=== PATIENT | male | born 1970 | race Caucasian/White ===

== ENCOUNTER 2023-03-05 10:24 | Inpatient (IN) | payer MEDICAID ==
[~2023-03-05] VITALS: Ht 185.4 cm; Wt 75.7 kg
[2023-03-05] MEDS ORDERED: ondansetron/PF 4mg/2ml inj IV ONE (12:20)
[2023-03-05] MEDS ORDERED: normal saline 1000ml 1,000 ML IV ONE (12:20)
[2023-03-05] MEDS ORDERED: HYDROmorphone 1 mg/ml syringe IV ONE (12:25)
[2023-03-05] MEDS ORDERED: vancomycin/NS 1 GM ADD-VANTAGE 250 ML IV ONE (12:35)
[2023-03-05 13:25] LABS: BASOPHILS % (AUTO) 0.3 % (0-1); EOSINOPHILS # (AUTO) 0.1 X10'3 (0-0.9); EOSINOPHILS % (AUTO) 0.7 % (0-6); HEMATOCRIT 35.7 % (42.0-52.0); HEMOGLOBIN 11.9 g/dl (14.0-17.9); LYMPHOCYTES # (AUTO) 0.9 X10'3 (1.1-4.8); LYMPHOCYTES % (AUTO) 12.2 % (21-51); MEAN CORPUSCULAR HEMOGLOBIN 29.9 PG (27.0-31.0); MEAN CORPUSCULAR HGB CONC 33.3 g/dL (33.0-36.5); MEAN CORPUSCULAR VOLUME 89.8 FL (78-98); MEAN PLATELET VOLUME 6.6 FL (7.4-10.4); MONOCYTES # (AUTO) 0.7 X10'3 (0-0.9); MONOCYTES % (AUTO) 8.8 % (2-12); PLATELET COUNT 355 X10'3 (140-440); RED BLOOD COUNT 3.98 X10'6 (4.70-6.10); RED CELL DISTRIBUTION WIDTH 13.6 % (11.5-14.5); WHITE BLOOD COUNT 7.7 X10'3 (4.5-11.0)
[2023-03-05 13:43] LABS: ALANINE AMINOTRANSFERASE 10 U/L (12-78); ALBUMIN 2.2 G/DL (3.4-5.0); ALBUMIN/GLOBULIN RATIO 0.5 (1.1-1.5); ALKALINE PHOSPHATASE 115 IU/L (46-116); ANION GAP 6 (8-16); ASPARTATE AMINO TRANSFERASE 13 U/L (10-37); BILIRUBIN,TOTAL 0.4 MG/DL (0.1-1.0); BLOOD UREA NITROGEN 8 MG/DL (7-18); BUN/CREATININE RATIO 11.1 (10.0-20.0); C-REACTIVE PROTEIN 8.71 MG/DL (0.0-0.5); CALCIUM 8.1 MG/DL (8.5-10.1); CHLORIDE 98 MMOL/L (99-107); CREATININE 0.72 MG/DL (0.60-1.10); GLUCOSE 225 MG/DL (70-104); MAGNESIUM 1.8 MG/DL (1.5-2.4); POTASSIUM 4.1 MMOL/L (3.5-5.1); SODIUM 131 MMOL/L (135-145); TOTAL CARBON DIOXIDE 27.3 MMOL/L (24-32); TOTAL PROTEIN 6.5 G/DL (6.4-8.2); eCRCL 122 ML/MIN; eGFR > 90 ML/MIN
[2023-03-05] MEDS: normal saline 1000ml 1,000 ML IV SCH (16:35)
[2023-03-05] MEDS ORDERED: magnesium hydroxide 30ml (MOM) UD suspension PO PRN (16:35)
[2023-03-05] MEDS ORDERED: ondansetron/PF 4mg/2ml inj IV PRN (16:35)
[2023-03-05] MEDS ORDERED: acetaminophen 325mg tablet PO PRN (16:35)
[2023-03-05] MEDS ORDERED: mag hydrox/Alum hydrox/simeth 30ml oral suspension PO PRN (16:35)
[2023-03-05] MEDS ORDERED: magnesium Cl slow-release 64mg tablet PO PRN (16:35)
[2023-03-05] MEDS ORDERED: potassium Cl 20 mEq SR tablet PO PRN ×2 (16:35)
[2023-03-05] MEDS ORDERED: magnesium 4gm in 100ml NS 100 ML IV PRN (16:35)
[2023-03-05] MEDS ORDERED: potassium Cl 40MEQ/1/2NS 520ml 520 ML IV PRN (16:35)
[2023-03-05] MEDS: cefepime 2g/NS 100ml ADVANTAGE 100 ML IV SCH (16:38)
[2023-03-05] MEDS: morphine 2 MG/ML inj. syringe IV PRN (16:50)
[2023-03-05] MEDS ORDERED: GADOTERATE MEGLUMINE 7.5 MMOL/15 ML VIAL IV ONE (19:21)
[2023-03-05] MEDS ORDERED: morphine 2 MG/ML inj. syringe IV STA (19:47)
[2023-03-05] MEDS ORDERED: DEXTROSE 15 GM of carb/4 tabs (each vial/BOTTLE has 4 tablets) PO PRN (20:05)
[2023-03-05] MEDS ORDERED: dextrose 50%-water 50ml dispensing syringe IV PRN ×2 (20:05)
[2023-03-05] MEDS ORDERED: glucagon, human recombinant 1mg kit SUBCUT PRN (20:05)
[2023-03-05] MEDS: clindamycin 600mg/D5W 50ml 50 ML IV SCH (20:25)
[2023-03-05] MEDS: insulin glargine (Lantus) pen - multi-dose SQ SCH (20:35)
[2023-03-06] MEDS: morphine 2 MG/ML inj. syringe IV PRN ×5 (00:46→14:23)
[2023-03-06] MEDS: cefepime 2g/NS 100ml ADVANTAGE 100 ML IV SCH ×2 (00:47→08:01)
[2023-03-06] MEDS: VANCOmycin 1250MG/NS 250ml Bag 250 ML IV SCH ×2 (01:28→13:34)
[2023-03-06] MEDS: normal saline 1000ml 1,000 ML IV SCH ×3 (02:37→20:13)
[2023-03-06] MEDS: clindamycin 600mg/D5W 50ml 50 ML IV SCH ×4 (03:04→20:08)
[2023-03-06 07:30] VITALS: RESP 20; O2SAT 97
[2023-03-06 08:00] VITALS: BP 149/94; PULSE 83; RESP 20; TEMP 98.1; O2SAT 95
[2023-03-06] MEDS: enoxaparin 40mg/0.4ml syringe SUBCUT SCH (08:00)
[2023-03-06] MEDS ORDERED: lisinopril 5mg tablet PO SCH (08:00)
[2023-03-06 09:33] LABS: BASOPHILS # (AUTO) 0.1 X10'3 (0-0.2); BASOPHILS % (AUTO) 0.8 % (0-1); EOSINOPHILS # (AUTO) 0.1 X10'3 (0-0.9); HEMATOCRIT 32.1 % (42.0-52.0); HEMOGLOBIN 10.8 g/dl (14.0-17.9); LYMPHOCYTES # (AUTO) 0.9 X10'3 (1.1-4.8); LYMPHOCYTES % (AUTO) 11.8 % (21-51); MEAN CORPUSCULAR HEMOGLOBIN 30.4 PG (27.0-31.0); MEAN CORPUSCULAR HGB CONC 33.8 g/dL (33.0-36.5); MEAN CORPUSCULAR VOLUME 89.9 FL (78-98); MEAN PLATELET VOLUME 6.3 FL (7.4-10.4); MONOCYTES # (AUTO) 0.6 X10'3 (0-0.9); MONOCYTES % (AUTO) 8.8 % (2-12); NEUTROPHILS # (AUTO) 5.6 X10'3 (1.8-7.7); NEUTROPHILS % (AUTO) 77.6 % (42-75); PLATELET COUNT 348 X10'3 (140-440); RED BLOOD COUNT 3.57 X10'6 (4.70-6.10); RED CELL DISTRIBUTION WIDTH 13.9 % (11.5-14.5); WHITE BLOOD COUNT 7.3 X10'3 (4.5-11.0)
[2023-03-06 09:57] LABS: ALANINE AMINOTRANSFERASE 8 U/L (12-78); ALBUMIN 1.8 G/DL (3.4-5.0); ALBUMIN/GLOBULIN RATIO 0.5 (1.1-1.5); ALKALINE PHOSPHATASE 96 IU/L (46-116); ANION GAP 4 (8-16); ASPARTATE AMINO TRANSFERASE 11 U/L (10-37); BILIRUBIN,TOTAL 0.3 MG/DL (0.1-1.0); BLOOD UREA NITROGEN 6 MG/DL (7-18); BUN/CREATININE RATIO 9.7 (10.0-20.0); CHLORIDE 99 MMOL/L (99-107); CHOL/HDL RATIO 2.4 (0.00-4.99); CHOLESTEROL 126 MG/DL (0-200); CREATININE 0.62 MG/DL (0.60-1.10); GLUCOSE 117 MG/DL (70-104); HDL CHOLESTEROL 53 MG/DL (35-60); LDL CHOLESTEROL 55 MG/DL (50-100); POTASSIUM 3.7 MMOL/L (3.5-5.1); SODIUM 130 MMOL/L (135-145); TOTAL CARBON DIOXIDE 27.2 MMOL/L (24-32); TOTAL PROTEIN 5.6 G/DL (6.4-8.2); TRIGLYCERIDES 58 MG/DL (20-135); eCRCL 142 ML/MIN; eGFR > 90 ML/MIN
[2023-03-06] MEDS: HYDROcodone/acetaminophen 10/325mg tab PO PRN ×3 (10:49→20:16)
[2023-03-06 12:36] VITALS: BP 167/103; PULSE 82; RESP 17; TEMP 98.2; O2SAT 98
[2023-03-06] MEDS: piperacillin/tazo 4.5gm/100ml 100 ML IV SCH ×2 (13:34→16:00)
[2023-03-06] MEDS: lisinopril 20mg tablet PO SCH (15:12)
[2023-03-06 18:00] VITALS: BP 165/101; PULSE 91; RESP 14; TEMP 98.2; O2SAT 95
[2023-03-06] MEDS ORDERED: LISI20TA28 PO (18:42)
[2023-03-06] MEDS ORDERED: GABA300C PO ×3 (18:42)
[2023-03-06 20:00] VITALS: RESP 20; O2SAT 97
[2023-03-06] MEDS: insulin Lispro (HumaLOG) vial - multi-dose SQ SCH (21:11)
[2023-03-06] MEDS: insulin glargine (Lantus) pen - multi-dose SQ SCH (21:22)
[2023-03-06 22:00] VITALS: BP 149/94; PULSE 89; RESP 16; TEMP 98.2; O2SAT 96
[2023-03-07] VITALS (7 sets, daily range): BP systolic 137–158; BP diastolic 83–96; PULSE 83–87; RESP 12–18; TEMP 97.2–98.7; O2SAT 95–99
[2023-03-07] MEDS: piperacillin/tazo 4.5gm/100ml 100 ML IV SCH ×3 (00:20→15:59)
[2023-03-07] MEDS: HYDROcodone/acetaminophen 10/325mg tab PO PRN ×3 (00:52→19:25)
[2023-03-07] MEDS: VANCOmycin 1250MG/NS 250ml Bag 250 ML IV SCH ×2 (01:13→13:16)
[2023-03-07] MEDS: clindamycin 600mg/D5W 50ml 50 ML IV SCH ×4 (03:16→19:31)
[2023-03-07] MEDS: normal saline 1000ml 1,000 ML IV SCH ×2 (05:30→17:06)
[2023-03-07 06:34] LABS: BASOPHILS # (AUTO) 0.1 X10'3 (0-0.2); EOSINOPHILS # (AUTO) 0.1 X10'3 (0-0.9); EOSINOPHILS % (AUTO) 1.5 % (0-6); HEMATOCRIT 32.6 % (42.0-52.0); HEMOGLOBIN 11.2 g/dl (14.0-17.9); LYMPHOCYTES # (AUTO) 0.9 X10'3 (1.1-4.8); LYMPHOCYTES % (AUTO) 12.7 % (21-51); MEAN CORPUSCULAR HEMOGLOBIN 30.5 PG (27.0-31.0); MEAN CORPUSCULAR HGB CONC 34.4 g/dL (33.0-36.5); MEAN CORPUSCULAR VOLUME 88.5 FL (78-98); MEAN PLATELET VOLUME 6.2 FL (7.4-10.4); MONOCYTES # (AUTO) 0.6 X10'3 (0-0.9); MONOCYTES % (AUTO) 9.2 % (2-12); NEUTROPHILS # (AUTO) 5.2 X10'3 (1.8-7.7); NEUTROPHILS % (AUTO) 75.6 % (42-75); PLATELET COUNT 402 X10'3 (140-440); RED BLOOD COUNT 3.69 X10'6 (4.70-6.10); RED CELL DISTRIBUTION WIDTH 13.6 % (11.5-14.5); WHITE BLOOD COUNT 6.9 X10'3 (4.5-11.0)
[2023-03-07 06:50] LABS: ALANINE AMINOTRANSFERASE 9 U/L (12-78); ALBUMIN 1.8 G/DL (3.4-5.0); ALBUMIN/GLOBULIN RATIO 0.5 (1.1-1.5); ALKALINE PHOSPHATASE 105 IU/L (46-116); ANION GAP 4 (8-16); ASPARTATE AMINO TRANSFERASE 13 U/L (10-37); BILIRUBIN,TOTAL 0.2 MG/DL (0.1-1.0); BLOOD UREA NITROGEN 15 MG/DL (7-18); BUN/CREATININE RATIO 18.8 (10.0-20.0); CALCIUM 8.2 MG/DL (8.5-10.1); CHLORIDE 97 MMOL/L (99-107); GLUCOSE 129 MG/DL (70-104); POTASSIUM 4.1 MMOL/L (3.5-5.1); SODIUM 130 MMOL/L (135-145); TOTAL CARBON DIOXIDE 28.7 MMOL/L (24-32); TOTAL PROTEIN 5.8 G/DL (6.4-8.2); eCRCL 110 ML/MIN; eGFR > 90 ML/MIN
[2023-03-07] MEDS: lisinopril 20mg tablet PO SCH ×4 (07:37→19:25)
[2023-03-07] MEDS: enoxaparin 40mg/0.4ml syringe SUBCUT SCH (07:38)
[2023-03-07] MEDS: morphine 2 MG/ML inj. syringe IV PRN ×3 (07:42→15:59)
[2023-03-07] MEDS: insulin Lispro (HumaLOG) vial - multi-dose SQ SCH ×2 (08:48→13:22)
[2023-03-07] MEDS ORDERED: VANCOMYCIN LEVEL IV ONE (12:30)
[2023-03-07] MEDS: insulin glargine (Lantus) pen - multi-dose SQ SCH (21:50)
[2023-03-08] MEDS: piperacillin/tazo 4.5gm/100ml 100 ML IV SCH ×3 (00:23→16:40)
[2023-03-08] MEDS: vancomycin 1,750 MG in NS 350ml IV soln IV SCH ×2 (01:40→12:49)
[2023-03-08] MEDS: clindamycin 600mg/D5W 50ml 50 ML IV SCH ×4 (03:09→20:02)
[2023-03-08] MEDS: HYDROcodone/acetaminophen 10/325mg tab PO PRN ×4 (03:18→17:04)
[2023-03-08 06:00] VITALS: BP 142/65; PULSE 72; RESP 16; TEMP 97; O2SAT 93
[2023-03-08 06:17] LABS: BASOPHILS # (AUTO) 0.1 X10'3 (0-0.2); EOSINOPHILS # (AUTO) 0.1 X10'3 (0-0.9); EOSINOPHILS % (AUTO) 1.9 % (0-6); HEMATOCRIT 34.7 % (42.0-52.0); HEMOGLOBIN 11.5 g/dl (14.0-17.9); LYMPHOCYTES % (AUTO) 12.8 % (21-51); MEAN CORPUSCULAR HEMOGLOBIN 29.7 PG (27.0-31.0); MEAN CORPUSCULAR HGB CONC 33.3 g/dL (33.0-36.5); MEAN CORPUSCULAR VOLUME 89.2 FL (78-98); MEAN PLATELET VOLUME 6.4 FL (7.4-10.4); MONOCYTES # (AUTO) 0.7 X10'3 (0-0.9); MONOCYTES % (AUTO) 9.2 % (2-12); NEUTROPHILS % (AUTO) 75.1 % (42-75); PLATELET COUNT 440 X10'3 (140-440); RED BLOOD COUNT 3.89 X10'6 (4.70-6.10); RED CELL DISTRIBUTION WIDTH 13.5 % (11.5-14.5)
[2023-03-08 06:20] LABS: ALANINE AMINOTRANSFERASE 8 U/L (12-78); ALBUMIN 1.8 G/DL (3.4-5.0); ALBUMIN/GLOBULIN RATIO 0.4 (1.1-1.5); ALKALINE PHOSPHATASE 102 IU/L (46-116); ANION GAP 5 (8-16); ASPARTATE AMINO TRANSFERASE 12 U/L (10-37); BILIRUBIN,TOTAL 0.2 MG/DL (0.1-1.0); BLOOD UREA NITROGEN 19 MG/DL (7-18); BUN/CREATININE RATIO 21.8 (10.0-20.0); CALCIUM 8.2 MG/DL (8.5-10.1); CHLORIDE 95 MMOL/L (99-107); CREATININE 0.87 MG/DL (0.60-1.10); GLUCOSE 244 MG/DL (70-104); POTASSIUM 4.3 MMOL/L (3.5-5.1); SODIUM 129 MMOL/L (135-145); TOTAL CARBON DIOXIDE 29.4 MMOL/L (24-32); TOTAL PROTEIN 6.1 G/DL (6.4-8.2); eCRCL 111 ML/MIN; eGFR > 90 ML/MIN
[2023-03-08] MEDS: lisinopril 20mg tablet PO SCH ×2 (07:58→20:03)
[2023-03-08] MEDS: enoxaparin 40mg/0.4ml syringe SUBCUT SCH (07:58)
[2023-03-08] MEDS: insulin Lispro (HumaLOG) vial - multi-dose SQ SCH ×2 (09:01→13:04)
[2023-03-08 10:00] VITALS: BP 115/69; PULSE 78; RESP 18; TEMP 98.4; O2SAT 97
[2023-03-08] MEDS: insulin glargine (Lantus) pen - multi-dose SQ SCH (14:45)
[2023-03-08] MEDS: morphine 2 MG/ML inj. syringe IV PRN (15:06)
[2023-03-08] MEDS: normal saline 1000ml 1,000 ML IV SCH (16:41)
[2023-03-08 18:00] VITALS: BP 133/75; PULSE 83; RESP 16; TEMP 98.9; O2SAT 94
[2023-03-08] MEDS ORDERED: insulin glargine (Lantus) pen - multi-dose SQ ONE (18:00)
[2023-03-08 20:00] VITALS: RESP 18
[2023-03-08 22:00] VITALS: BP 159/98; PULSE 92; RESP 16; TEMP 98; O2SAT 97
[2023-03-09] VITALS (18 sets, daily range): BP systolic 103–172; BP diastolic 53–101; PULSE 63–88; RESP 10–17; TEMP 97.4–98.5; O2SAT 93–100
[2023-03-09] MEDS: piperacillin/tazo 4.5gm/100ml 100 ML IV SCH ×4 (00:35→18:37)
[2023-03-09] MEDS: HYDROcodone/acetaminophen 10/325mg tab PO PRN ×3 (00:39→17:32)
[2023-03-09] MEDS: vancomycin 1,750 MG in NS 350ml IV soln IV SCH ×2 (00:40→16:04)
[2023-03-09] MEDS: clindamycin 600mg/D5W 50ml 50 ML IV SCH ×4 (03:15→20:45)
[2023-03-09 06:07] LABS: BASOPHILS # (AUTO) 0.1 X10'3 (0-0.2); EOSINOPHILS # (AUTO) 0.1 X10'3 (0-0.9); EOSINOPHILS % (AUTO) 1.6 % (0-6); HEMATOCRIT 33.9 % (42.0-52.0); HEMOGLOBIN 11.6 g/dl (14.0-17.9); LYMPHOCYTES # (AUTO) 1.1 X10'3 (1.1-4.8); LYMPHOCYTES % (AUTO) 13.5 % (21-51); MEAN CORPUSCULAR HEMOGLOBIN 30.3 PG (27.0-31.0); MEAN CORPUSCULAR HGB CONC 34.1 g/dL (33.0-36.5); MEAN CORPUSCULAR VOLUME 88.8 FL (78-98); MEAN PLATELET VOLUME 6.4 FL (7.4-10.4); MONOCYTES # (AUTO) 0.7 X10'3 (0-0.9); MONOCYTES % (AUTO) 8.4 % (2-12); NEUTROPHILS # (AUTO) 6.2 X10'3 (1.8-7.7); NEUTROPHILS % (AUTO) 75.5 % (42-75); PLATELET COUNT 482 X10'3 (140-440); RED BLOOD COUNT 3.82 X10'6 (4.70-6.10); RED CELL DISTRIBUTION WIDTH 13.5 % (11.5-14.5); WHITE BLOOD COUNT 8.2 X10'3 (4.5-11.0)
[2023-03-09 06:12] LABS: ALBUMIN 1.8 G/DL (3.4-5.0); ALBUMIN/GLOBULIN RATIO 0.4 (1.1-1.5); ALKALINE PHOSPHATASE 95 IU/L (46-116); ANION GAP 4 (8-16); ASPARTATE AMINO TRANSFERASE 12 U/L (10-37); BILIRUBIN,TOTAL 0.3 MG/DL (0.1-1.0); BLOOD UREA NITROGEN 20 MG/DL (7-18); CALCIUM 8.4 MG/DL (8.5-10.1); CHLORIDE 96 MMOL/L (99-107); GLUCOSE 204 MG/DL (70-104); POTASSIUM 4.3 MMOL/L (3.5-5.1); SODIUM 129 MMOL/L (135-145); TOTAL CARBON DIOXIDE 29.2 MMOL/L (24-32); TOTAL PROTEIN 6.4 G/DL (6.4-8.2); eCRCL 121 ML/MIN; eGFR > 90 ML/MIN
[2023-03-09 06:57] LABS: ALANINE AMINOTRANSFERASE < 6 U/L (12-78)
[2023-03-09 07:15] LABS: APTT 31 SECONDS (22-32); PROTHROMBIN TIME 10.5 SECONDS (9.0-12.0)
[2023-03-09] MEDS: atorvastatin 20mg tablet PO SCH (07:26)
[2023-03-09] MEDS: folic acid/vitamin B complex w/vitamin C 0.8mg tablet PO SCH (07:27)
[2023-03-09] MEDS: multivitamins, therapeutics tablet PO SCH (07:28)
[2023-03-09] MEDS: lisinopril 20mg tablet PO SCH ×2 (07:28→17:59)
[2023-03-09] MEDS: morphine 2 MG/ML inj. syringe IV PRN ×3 (07:41→20:50)
[2023-03-09] MEDS: enoxaparin 40mg/0.4ml syringe SUBCUT SCH (08:00)
[2023-03-09] MEDS: insulin glargine (Lantus) pen - multi-dose SQ SCH (08:00)
[2023-03-09] MEDS: insulin Lispro (HumaLOG) vial - multi-dose SQ SCH ×3 (08:32→20:42)
[2023-03-09] MEDS ORDERED: labetalol 20mg/4ml (5mg/ml) syringe IV PRN (11:25)
[2023-03-09] MEDS ORDERED: morphine 2 MG/ML inj. syringe IV PRN (11:25)
[2023-03-09] MEDS ORDERED: ringers solution, lacted 1,000 ML IV SCH (11:25)
[2023-03-09] MEDS ORDERED: morphine 4 MG/ML inj SYRINge IV PRN (11:25)
[2023-03-09] MEDS ORDERED: ringers solution, lacted 1,000 ML IV ONE (11:25)
[2023-03-09] MEDS ORDERED: fentaNYL/PF 50MCG/1 ML 2ML syringe IV PRN ×2 (11:25)
[2023-03-09] MEDS ORDERED: ondansetron/PF 4mg/2ml inj IV PRN (11:25)
[2023-03-09] MEDS ORDERED: hydrALAZINE 20mg/ml inj. IV PRN (11:25)
[2023-03-09] MEDS ORDERED: VANCOMYCIN LEVEL IV ONE (12:30)
[2023-03-09] MEDS ORDERED: BUPIVAcaine 2.5mg/ml inj 50ml vial (contains preservative) ONE (12:39)
[2023-03-09] MEDS ORDERED: fentaNYL/PF 50MCG/1 ML 2ML syringe ONE (13:20)
[2023-03-09] MEDS ORDERED: midazolam 1 mg/ML 2ml injection ONE (13:20)
[2023-03-09] MEDS ORDERED: ondansetron/PF 4mg/2ml inj ONE (13:21)
[2023-03-09] MEDS ORDERED: propofol inj 20 ML IV ONE (13:21)
[2023-03-09] MEDS ORDERED: LIDOcaine 2% (20mg/ml) 5ml vial ONE (13:21)
[2023-03-09] MEDS ORDERED: dexamethasone sod phosphate 10mg/ml inj ONE (13:24)
[2023-03-09] MEDS ORDERED: sevoflurane 250ml liquid IH ONE (13:24)
[2023-03-09] MEDS ORDERED: vancomycin 1,000mg inj ONE (13:59)
[2023-03-09] MEDS ORDERED: vancomycin 1,000mg inj IVT ONE (14:00)
[2023-03-09] MEDS ORDERED: BUPIVAcaine 2.5mg/ml inj 50ml vial (contains preservative) IJ ONE (14:00)
[2023-03-10] MEDS: piperacillin/tazo 4.5gm/100ml 100 ML IV SCH ×4 (00:41→23:37)
[2023-03-10] MEDS: vancomycin 1,750 MG in NS 350ml IV soln IV SCH ×2 (00:41→14:11)
[2023-03-10] MEDS: normal saline 1000ml 1,000 ML IV SCH ×2 (00:42→18:58)
[2023-03-10] MEDS: HYDROcodone/acetaminophen 10/325mg tab PO PRN ×5 (00:49→18:57)
[2023-03-10 02:00] VITALS: BP 172/92; PULSE 83; RESP 16; TEMP 98; O2SAT 93
[2023-03-10] MEDS: clindamycin 600mg/D5W 50ml 50 ML IV SCH (02:29)
[2023-03-10] MEDS ORDERED: famotidine 20mg tablet PO ONE (06:00)
[2023-03-10 06:10] LABS: BASOPHILS # (AUTO) 0.1 X10'3 (0-0.2); BASOPHILS % (AUTO) 0.8 % (0-1); EOSINOPHILS # (AUTO) 0.1 X10'3 (0-0.9); EOSINOPHILS % (AUTO) 0.8 % (0-6); HEMATOCRIT 35.5 % (42.0-52.0); HEMOGLOBIN 11.8 g/dl (14.0-17.9); LYMPHOCYTES # (AUTO) 0.8 X10'3 (1.1-4.8); LYMPHOCYTES % (AUTO) 8.2 % (21-51); MEAN CORPUSCULAR HEMOGLOBIN 29.6 PG (27.0-31.0); MEAN CORPUSCULAR HGB CONC 33.2 g/dL (33.0-36.5); MEAN CORPUSCULAR VOLUME 89.1 FL (78-98); MEAN PLATELET VOLUME 6.3 FL (7.4-10.4); MONOCYTES # (AUTO) 0.7 X10'3 (0-0.9); MONOCYTES % (AUTO) 7.2 % (2-12); NEUTROPHILS # (AUTO) 7.8 X10'3 (1.8-7.7); PLATELET COUNT 498 X10'3 (140-440); RED BLOOD COUNT 3.99 X10'6 (4.70-6.10); RED CELL DISTRIBUTION WIDTH 13.4 % (11.5-14.5); WHITE BLOOD COUNT 9.4 X10'3 (4.5-11.0)
[2023-03-10 06:51] LABS: ALANINE AMINOTRANSFERASE 8 U/L (12-78); ALBUMIN 1.8 G/DL (3.4-5.0); ALBUMIN/GLOBULIN RATIO 0.4 (1.1-1.5); ALKALINE PHOSPHATASE 99 IU/L (46-116); ANION GAP 6 (8-16); ASPARTATE AMINO TRANSFERASE 15 U/L (10-37); BILIRUBIN,TOTAL 0.3 MG/DL (0.1-1.0); BLOOD UREA NITROGEN 18 MG/DL (7-18); BUN/CREATININE RATIO 18.9 (10.0-20.0); CALCIUM 8.1 MG/DL (8.5-10.1); CHLORIDE 96 MMOL/L (99-107); CREATININE 0.95 MG/DL (0.60-1.10); GLUCOSE 345 MG/DL (70-104); POTASSIUM 4.5 MMOL/L (3.5-5.1); SODIUM 129 MMOL/L (135-145); TOTAL CARBON DIOXIDE 27.1 MMOL/L (24-32); eCRCL 102 ML/MIN; eGFR 83 ML/MIN
[2023-03-10] MEDS: folic acid/vitamin B complex w/vitamin C 0.8mg tablet PO SCH (08:47)
[2023-03-10] MEDS: multivitamins, therapeutics tablet PO SCH (08:47)
[2023-03-10] MEDS: atorvastatin 20mg tablet PO SCH (08:47)
[2023-03-10] MEDS: enoxaparin 40mg/0.4ml syringe SUBCUT SCH (08:48)
[2023-03-10 09:00] VITALS: BP 163/99; PULSE 79; RESP 18; TEMP 97.8; O2SAT 96
[2023-03-10] MEDS: lisinopril 20mg tablet PO SCH ×2 (09:37→19:01)
[2023-03-10 11:00] VITALS: BP 159/81; PULSE 83; RESP 18; TEMP 98.7; O2SAT 95
[2023-03-10] MEDS: insulin glargine (Lantus) pen - multi-dose SQ SCH (11:12)
[2023-03-10] MEDS: morphine 2 MG/ML inj. syringe IV PRN (11:17)
[2023-03-10] MEDS ORDERED: insulin glargine (Lantus) pen - multi-dose SQ SCH (11:20)
[2023-03-10] MEDS ORDERED: morphine 2 MG/ML inj. syringe IV PRN (13:20)
[2023-03-10] MEDS: gabapentin 100mg capsule PO SCH ×2 (14:11→21:31)
[2023-03-10] MEDS: insulin Lispro (HumaLOG) vial - multi-dose SQ SCH ×2 (14:21→18:50)
[2023-03-10 18:00] VITALS: BP 156/79; PULSE 84; RESP 16; TEMP 98.6; O2SAT 96
[2023-03-10] MEDS: lactose-reduced food (Ensure High Protein) 237ml bottle PO SCH (18:00)
[2023-03-10 20:00] VITALS: RESP 16; O2SAT 96
[2023-03-10] MEDS ORDERED: insulin glargine (Lantus) pen - multi-dose SQ ONE (21:15)
[2023-03-10] MEDS: zinc sulfate 220mg capsule PO SCH (21:31)
[2023-03-10 22:00] VITALS: BP 122/67; PULSE 77; RESP 18; TEMP 98.9; O2SAT 94
[2023-03-11] MEDS: vancomycin 1,750 MG in NS 350ml IV soln IV SCH ×2 (01:25→13:35)
[2023-03-11] MEDS: HYDROcodone/acetaminophen 10/325mg tab PO PRN ×4 (03:31→19:13)
[2023-03-11] MEDS: normal saline 1000ml 1,000 ML IV SCH ×2 (04:55→18:26)
[2023-03-11 06:33] VITALS: BP 145/86; PULSE 76; RESP 16; TEMP 99.2; O2SAT 94
[2023-03-11] MEDS: piperacillin/tazo 4.5gm/100ml 100 ML IV SCH ×3 (07:35→23:49)
[2023-03-11] MEDS: pantoprazole 40mg Tablet.DR PO SCH (07:36)
[2023-03-11] MEDS: atorvastatin 20mg tablet PO SCH (07:36)
[2023-03-11] MEDS: gabapentin 100mg capsule PO SCH ×3 (07:36→20:47)
[2023-03-11] MEDS: multivitamins, therapeutics tablet PO SCH (07:36)
[2023-03-11] MEDS: folic acid/vitamin B complex w/vitamin C 0.8mg tablet PO SCH (07:36)
[2023-03-11] MEDS: lisinopril 20mg tablet PO SCH ×2 (07:37→20:49)
[2023-03-11] MEDS: enoxaparin 40mg/0.4ml syringe SUBCUT SCH (07:37)
[2023-03-11] MEDS: zinc sulfate 220mg capsule PO SCH ×3 (07:37→20:46)
[2023-03-11] MEDS: lactose-reduced food (Ensure High Protein) 237ml bottle PO SCH ×3 (07:42→18:26)
[2023-03-11] MEDS: ascorbic acid 500mg tablet PO SCH ×3 (08:52→17:37)
[2023-03-11 10:00] VITALS: BP 126/73; PULSE 72; RESP 18; TEMP 97.9; O2SAT 96
[2023-03-11] MEDS: insulin Lispro (HumaLOG) vial - multi-dose SQ SCH ×2 (13:43→18:52)
[2023-03-11 17:30] VITALS: TEMP 98.5
[2023-03-11 18:00] VITALS: BP 158/86; PULSE 79; RESP 14; TEMP 98.2; O2SAT 95
[2023-03-11 20:00] VITALS: RESP 14; O2SAT 94
[2023-03-11] MEDS: nystatin 15 GM powder TP SCH (20:46)
[2023-03-11] MEDS: insulin glargine (Lantus) pen - multi-dose SQ SCH (20:52)
[2023-03-11 22:00] VITALS: BP 121/67; PULSE 85; RESP 14; TEMP 97.1; O2SAT 91
[2023-03-12] MEDS: vancomycin 1,750 MG in NS 350ml IV soln IV SCH ×2 (01:01→14:35)
[2023-03-12] MEDS: HYDROcodone/acetaminophen 10/325mg tab PO PRN ×4 (01:06→20:12)
[2023-03-12 06:00] VITALS: BP 157/84; PULSE 79; RESP 16; TEMP 97.3; O2SAT 97
[2023-03-12] MEDS: lactose-reduced food (Ensure High Protein) 237ml bottle PO SCH ×3 (08:00→18:00)
[2023-03-12 08:17] LABS: BASOPHILS # (AUTO) 0.1 X10'3 (0-0.2); BASOPHILS % (AUTO) 1.3 % (0-1); EOSINOPHILS # (AUTO) 0.1 X10'3 (0-0.9); EOSINOPHILS % (AUTO) 1.6 % (0-6); HEMATOCRIT 33.7 % (42.0-52.0); HEMOGLOBIN 11.1 g/dl (14.0-17.9); LYMPHOCYTES # (AUTO) 1.3 X10'3 (1.1-4.8); LYMPHOCYTES % (AUTO) 13.7 % (21-51); MEAN CORPUSCULAR HEMOGLOBIN 29.4 PG (27.0-31.0); MEAN CORPUSCULAR VOLUME 89.2 FL (78-98); MONOCYTES # (AUTO) 0.8 X10'3 (0-0.9); MONOCYTES % (AUTO) 8.7 % (2-12); NEUTROPHILS % (AUTO) 74.7 % (42-75); PLATELET COUNT 527 X10'3 (140-440); RED BLOOD COUNT 3.78 X10'6 (4.70-6.10); RED CELL DISTRIBUTION WIDTH 13.6 % (11.5-14.5); WHITE BLOOD COUNT 9.3 X10'3 (4.5-11.0)
[2023-03-12 08:42] LABS: ALANINE AMINOTRANSFERASE 9 U/L (12-78); ALBUMIN 1.7 G/DL (3.4-5.0); ALBUMIN/GLOBULIN RATIO 0.4 (1.1-1.5); ALKALINE PHOSPHATASE 91 IU/L (46-116); ANION GAP 7 (8-16); ASPARTATE AMINO TRANSFERASE 16 U/L (10-37); BILIRUBIN,TOTAL 0.2 MG/DL (0.1-1.0); BLOOD UREA NITROGEN 22 MG/DL (7-18); BUN/CREATININE RATIO 31.9 (10.0-20.0); CALCIUM 8.4 MG/DL (8.5-10.1); CHLORIDE 98 MMOL/L (99-107); CREATININE 0.69 MG/DL (0.60-1.10); GLUCOSE 78 MG/DL (70-104); POTASSIUM 4.3 MMOL/L (3.5-5.1); SODIUM 131 MMOL/L (135-145); TOTAL CARBON DIOXIDE 26.3 MMOL/L (24-32); TOTAL PROTEIN 6.1 G/DL (6.4-8.2); eCRCL 140 ML/MIN; eGFR > 90 ML/MIN
[2023-03-12] MEDS: insulin Lispro (HumaLOG) vial - multi-dose SQ SCH ×4 (09:17→22:39)
[2023-03-12] MEDS: lisinopril 20mg tablet PO SCH ×2 (09:22→20:11)
[2023-03-12] MEDS: multivitamins, therapeutics tablet PO SCH (09:23)
[2023-03-12] MEDS: ascorbic acid 500mg tablet PO SCH ×3 (09:23→17:02)
[2023-03-12] MEDS: zinc sulfate 220mg capsule PO SCH ×3 (09:23→20:11)
[2023-03-12] MEDS: atorvastatin 20mg tablet PO SCH (09:23)
[2023-03-12] MEDS: gabapentin 100mg capsule PO SCH ×3 (09:23→20:11)
[2023-03-12] MEDS: pantoprazole 40mg Tablet.DR PO SCH (09:24)
[2023-03-12] MEDS: folic acid/vitamin B complex w/vitamin C 0.8mg tablet PO SCH (09:24)
[2023-03-12] MEDS: piperacillin/tazo 4.5gm/100ml 100 ML IV SCH ×2 (09:25→16:37)
[2023-03-12] MEDS: enoxaparin 40mg/0.4ml syringe SUBCUT SCH (09:26)
[2023-03-12] MEDS: nystatin 15 GM powder TP SCH ×2 (09:27→22:45)
[2023-03-12 09:30] VITALS: RESP 16
[2023-03-12 10:00] VITALS: BP 151/76; PULSE 81; RESP 16; TEMP 98.2; O2SAT 92
[2023-03-12] MEDS ORDERED: fluconazole 150mg tablet PO ONE (11:45)
[2023-03-12] MEDS ORDERED: VANCOMYCIN LEVEL IV ONE (12:30)
[2023-03-12 18:00] VITALS: BP 153/85; PULSE 104; RESP 18; TEMP 97.4; O2SAT 94
[2023-03-12] MEDS: azithromycin 250mg tablet PO SCH (20:10)
[2023-03-12 22:00] VITALS: BP 158/87; PULSE 80; RESP 14; TEMP 98.3; O2SAT 98
[2023-03-12] MEDS: insulin glargine (Lantus) pen - multi-dose SQ SCH (22:40)
[2023-03-13] MEDS: vancomycin 1,750 MG in NS 350ml IV soln IV SCH ×2 (00:51→14:16)
[2023-03-13] MEDS: piperacillin/tazo 4.5gm/100ml 100 ML IV SCH ×4 (00:51→23:59)
[2023-03-13 06:00] VITALS: BP 166/92; PULSE 79; RESP 16; TEMP 97.4; O2SAT 95
[2023-03-13] MEDS ORDERED: insulin glargine (Lantus) pen - multi-dose SQ SCH (08:00)
[2023-03-13] MEDS: atorvastatin 20mg tablet PO SCH ×2 (08:00→08:43)
[2023-03-13 08:30] VITALS: RESP 16
[2023-03-13 08:34] LABS: BASOPHILS # (AUTO) 0.1 X10'3 (0-0.2); BASOPHILS % (AUTO) 1.1 % (0-1); EOSINOPHILS # (AUTO) 0.2 X10'3 (0-0.9); EOSINOPHILS % (AUTO) 2.3 % (0-6); HEMATOCRIT 35.6 % (42.0-52.0); HEMOGLOBIN 11.6 g/dl (14.0-17.9); LYMPHOCYTES # (AUTO) 1.1 X10'3 (1.1-4.8); LYMPHOCYTES % (AUTO) 14.5 % (21-51); MEAN CORPUSCULAR HEMOGLOBIN 28.9 PG (27.0-31.0); MEAN CORPUSCULAR HGB CONC 32.5 g/dL (33.0-36.5); MEAN CORPUSCULAR VOLUME 89.1 FL (78-98); MEAN PLATELET VOLUME 6.3 FL (7.4-10.4); MONOCYTES # (AUTO) 0.6 X10'3 (0-0.9); MONOCYTES % (AUTO) 7.5 % (2-12); NEUTROPHILS # (AUTO) 5.8 X10'3 (1.8-7.7); NEUTROPHILS % (AUTO) 74.6 % (42-75); PLATELET COUNT 547 X10'3 (140-440); RED CELL DISTRIBUTION WIDTH 13.5 % (11.5-14.5); WHITE BLOOD COUNT 7.7 X10'3 (4.5-11.0)
[2023-03-13] MEDS: insulin Lispro (HumaLOG) vial - multi-dose SQ SCH ×3 (08:38→19:04)
[2023-03-13] MEDS: azithromycin 250mg tablet PO SCH (08:42)
[2023-03-13] MEDS: folic acid/vitamin B complex w/vitamin C 0.8mg tablet PO SCH (08:42)
[2023-03-13] MEDS: gabapentin 100mg capsule PO SCH ×3 (08:42→20:27)
[2023-03-13] MEDS: enoxaparin 40mg/0.4ml syringe SUBCUT SCH (08:42)
[2023-03-13] MEDS: HYDROcodone/acetaminophen 10/325mg tab PO PRN ×3 (08:42→18:53)
[2023-03-13] MEDS: pantoprazole 40mg Tablet.DR PO SCH (08:43)
[2023-03-13] MEDS: ascorbic acid 500mg tablet PO SCH ×3 (08:44→17:30)
[2023-03-13] MEDS: lisinopril 20mg tablet PO SCH ×2 (08:44→20:28)
[2023-03-13] MEDS: zinc sulfate 220mg capsule PO SCH ×3 (08:44→20:27)
[2023-03-13] MEDS: lactose-reduced food (Ensure High Protein) 237ml bottle PO SCH ×3 (08:44→17:53)
[2023-03-13] MEDS: multivitamins, therapeutics tablet PO SCH (08:44)
[2023-03-13] MEDS: nystatin 15 GM powder TP SCH ×2 (08:45→20:27)
[2023-03-13 09:08] LABS: ALANINE AMINOTRANSFERASE 10 U/L (12-78); ALBUMIN 1.7 G/DL (3.4-5.0); ALBUMIN/GLOBULIN RATIO 0.4 (1.1-1.5); ALKALINE PHOSPHATASE 91 IU/L (46-116); ANION GAP 7 (8-16); ASPARTATE AMINO TRANSFERASE 22 U/L (10-37); BILIRUBIN,TOTAL 0.2 MG/DL (0.1-1.0); BLOOD UREA NITROGEN 20 MG/DL (7-18); CALCIUM 8.5 MG/DL (8.5-10.1); CHLORIDE 97 MMOL/L (99-107); CREATININE 0.69 MG/DL (0.60-1.10); GLUCOSE 177 MG/DL (70-104); POTASSIUM 4.3 MMOL/L (3.5-5.1); SODIUM 131 MMOL/L (135-145); TOTAL CARBON DIOXIDE 27.3 MMOL/L (24-32); TOTAL PROTEIN 6.3 G/DL (6.4-8.2); eCRCL 140 ML/MIN; eGFR > 90 ML/MIN
[2023-03-13 10:00] VITALS: BP 144/74; PULSE 88; RESP 18; TEMP 99.1; O2SAT 96
[2023-03-13 11:53] LABS: BILIRUBIN,URINE NEGATIVE (Neg); CLARITY,URINE CLEAR (Clear); COLOR,URINE YELLOW (Yellow); GLUCOSE, URINE 100 mg/dl (Neg); KETONES,URINE NEGATIVE (Neg); LEUKOCYTE ESTERASE ,URINE NEGATIVE (Neg); NITRITES, URINE NEGATIVE (Neg); OCCULT BLOOD,URINE NEGATIVE (Neg); PH,URINE 6.5 (4.8-8.0); PROTEIN,URINE NEGATIVE (Neg); UROBILINOGEN,URINE 0.2 E.U/dL (0.2-1.0)
[2023-03-13 12:05] LABS: UA COLLECTION TYPE NON-SPECIFIED
[2023-03-13] MEDS: DEXTROSE 15 GM of carb/4 tabs (each vial/BOTTLE has 4 tablets) PO PRN ×2 (17:30→17:53)
[2023-03-13 18:00] VITALS: BP 157/78; PULSE 78; RESP 16; TEMP 98.6; O2SAT 99
[2023-03-13 20:00] VITALS: RESP 16; O2SAT 99
[2023-03-13] MEDS: insulin glargine (Lantus) pen - multi-dose SQ SCH (21:00)
[2023-03-13 22:00] VITALS: BP 142/71; PULSE 91; RESP 18; TEMP 98.1; O2SAT 92
[2023-03-14] MEDS: vancomycin 1,750 MG in NS 350ml IV soln IV SCH ×2 (00:50→12:05)
[2023-03-14 06:00] VITALS: BP 157/71; PULSE 70; RESP 18; TEMP 97.9; O2SAT 94
[2023-03-14 07:00] LABS: BASOPHILS # (AUTO) 0.1 X10'3 (0-0.2); BASOPHILS % (AUTO) 0.8 % (0-1); EOSINOPHILS # (AUTO) 0.2 X10'3 (0-0.9); EOSINOPHILS % (AUTO) 2.5 % (0-6); HEMATOCRIT 31.9 % (42.0-52.0); HEMOGLOBIN 10.7 g/dl (14.0-17.9); LYMPHOCYTES # (AUTO) 1.6 X10'3 (1.1-4.8); LYMPHOCYTES % (AUTO) 24.7 % (21-51); MEAN CORPUSCULAR HEMOGLOBIN 29.6 PG (27.0-31.0); MEAN CORPUSCULAR HGB CONC 33.5 g/dL (33.0-36.5); MEAN CORPUSCULAR VOLUME 88.5 FL (78-98); MEAN PLATELET VOLUME 5.9 FL (7.4-10.4); MONOCYTES # (AUTO) 0.7 X10'3 (0-0.9); MONOCYTES % (AUTO) 10.2 % (2-12); NEUTROPHILS # (AUTO) 3.9 X10'3 (1.8-7.7); NEUTROPHILS % (AUTO) 61.8 % (42-75); PLATELET COUNT 574 X10'3 (140-440); RED CELL DISTRIBUTION WIDTH 13.3 % (11.5-14.5); WHITE BLOOD COUNT 6.4 X10'3 (4.5-11.0)
[2023-03-14 07:09] LABS: ALANINE AMINOTRANSFERASE 8 U/L (12-78); ALBUMIN 1.7 G/DL (3.4-5.0); ALBUMIN/GLOBULIN RATIO 0.4 (1.1-1.5); ALKALINE PHOSPHATASE 89 IU/L (46-116); ANION GAP 5 (8-16); ASPARTATE AMINO TRANSFERASE 16 U/L (10-37); BILIRUBIN,TOTAL 0.2 MG/DL (0.1-1.0); BLOOD UREA NITROGEN 21 MG/DL (7-18); BUN/CREATININE RATIO 26.6 (10.0-20.0); CALCIUM 8.6 MG/DL (8.5-10.1); CHLORIDE 98 MMOL/L (99-107); CREATININE 0.79 MG/DL (0.60-1.10); GLUCOSE 178 MG/DL (70-104); POTASSIUM 4.3 MMOL/L (3.5-5.1); SODIUM 133 MMOL/L (135-145); TOTAL CARBON DIOXIDE 29.8 MMOL/L (24-32); TOTAL PROTEIN 6.1 G/DL (6.4-8.2); eCRCL 122 ML/MIN; eGFR > 90 ML/MIN
[2023-03-14] MEDS ORDERED: insulin glargine (Lantus) pen - multi-dose SQ ONE (07:45)
[2023-03-14] MEDS ORDERED: insulin glargine (Lantus) pen - multi-dose SQ SCH ×2 (08:00)
[2023-03-14] MEDS: zinc sulfate 220mg capsule PO SCH ×3 (08:40→20:42)
[2023-03-14] MEDS: piperacillin/tazo 4.5gm/100ml 100 ML IV SCH ×3 (08:40→23:19)
[2023-03-14] MEDS: pantoprazole 40mg Tablet.DR PO SCH (08:40)
[2023-03-14] MEDS: gabapentin 100mg capsule PO SCH ×3 (08:40→20:42)
[2023-03-14] MEDS: folic acid/vitamin B complex w/vitamin C 0.8mg tablet PO SCH (08:40)
[2023-03-14] MEDS: atorvastatin 20mg tablet PO SCH (08:41)
[2023-03-14] MEDS: ascorbic acid 500mg tablet PO SCH ×3 (08:41→16:40)
[2023-03-14] MEDS: enoxaparin 40mg/0.4ml syringe SUBCUT SCH (08:41)
[2023-03-14] MEDS: lactose-reduced food (Ensure High Protein) 237ml bottle PO SCH ×3 (08:41→18:12)
[2023-03-14] MEDS: multivitamins, therapeutics tablet PO SCH (08:41)
[2023-03-14] MEDS: lisinopril 20mg tablet PO SCH ×2 (08:49→20:43)
[2023-03-14] MEDS: nystatin 15 GM powder TP SCH ×2 (08:52→20:43)
[2023-03-14] MEDS: HYDROcodone/acetaminophen 10/325mg tab PO PRN ×3 (09:08→20:51)
[2023-03-14] MEDS: insulin Lispro (HumaLOG) vial - multi-dose SQ SCH ×3 (09:50→19:01)
[2023-03-14 10:00] VITALS: BP 161/80; PULSE 84; RESP 18; TEMP 98.5; O2SAT 93
[2023-03-14] MEDS: DEXTROSE 15 GM of carb/4 tabs (each vial/BOTTLE has 4 tablets) PO PRN (16:43)
[2023-03-14 18:00] VITALS: BP_SYST 145; BP_SYST 159; BP_DIAS 76; BP_DIAS 84; PULSE 79; PULSE 81; RESP 12; RESP 17; TEMP 97.8; TEMP 98.8; O2SAT 95; O2SAT 97
[2023-03-14 20:00] VITALS: RESP 12; O2SAT 97
[2023-03-14] MEDS: insulin glargine (Lantus) pen - multi-dose SQ SCH (21:38)
[2023-03-14] MEDS: morphine 2 MG/ML inj. syringe IV PRN (23:18)
[2023-03-15] MEDS: vancomycin 1,750 MG in NS 350ml IV soln IV SCH ×2 (01:00→13:42)
[2023-03-15 05:46] LABS: BASOPHILS # (AUTO) 0.1 X10'3 (0-0.2); EOSINOPHILS # (AUTO) 0.2 X10'3 (0-0.9); HEMOGLOBIN 11.2 g/dl (14.0-17.9); MONOCYTES # (AUTO) 0.7 X10'3 (0-0.9)
[2023-03-15 05:50] LABS: BASOPHILS % (AUTO) 0.8 % (0-1); EOSINOPHILS % (AUTO) 2.5 % (0-6); HEMATOCRIT 32.9 % (42.0-52.0); LYMPHOCYTES # (AUTO) 1.5 X10'3 (1.1-4.8); LYMPHOCYTES % (AUTO) 23.3 % (21-51); MEAN CORPUSCULAR HEMOGLOBIN 29.9 PG (27.0-31.0); MEAN CORPUSCULAR HGB CONC 34.1 g/dL (33.0-36.5); MEAN CORPUSCULAR VOLUME 87.6 FL (78-98); MEAN PLATELET VOLUME 6.1 FL (7.4-10.4); MONOCYTES % (AUTO) 10.3 % (2-12); NEUTROPHILS % (AUTO) 63.1 % (42-75); PLATELET COUNT 610 X10'3 (140-440); RED BLOOD COUNT 3.75 X10'6 (4.70-6.10); RED CELL DISTRIBUTION WIDTH 13.4 % (11.5-14.5); WHITE BLOOD COUNT 6.4 X10'3 (4.5-11.0)
[2023-03-15 06:00] VITALS: BP 169/98; PULSE 77; RESP 20; TEMP 98; O2SAT 96
[2023-03-15 06:05] LABS: ALANINE AMINOTRANSFERASE 10 U/L (12-78); ALBUMIN 1.9 G/DL (3.4-5.0); ALBUMIN/GLOBULIN RATIO 0.4 (1.1-1.5); ALKALINE PHOSPHATASE 91 IU/L (46-116); ANION GAP 6 (8-16); ASPARTATE AMINO TRANSFERASE 25 U/L (10-37); BILIRUBIN,TOTAL 0.2 MG/DL (0.1-1.0); BLOOD UREA NITROGEN 25 MG/DL (7-18); BUN/CREATININE RATIO 29.1 (10.0-20.0); CALCIUM 8.6 MG/DL (8.5-10.1); CHLORIDE 98 MMOL/L (99-107); CREATININE 0.86 MG/DL (0.60-1.10); GLUCOSE 120 MG/DL (70-104); POTASSIUM 4.2 MMOL/L (3.5-5.1); SODIUM 135 MMOL/L (135-145); TOTAL CARBON DIOXIDE 30.6 MMOL/L (24-32); TOTAL PROTEIN 6.4 G/DL (6.4-8.2); eCRCL 109 ML/MIN; eGFR > 90 ML/MIN
[2023-03-15] MEDS: pantoprazole 40mg Tablet.DR PO SCH (08:36)
[2023-03-15] MEDS: atorvastatin 20mg tablet PO SCH (08:37)
[2023-03-15] MEDS: piperacillin/tazo 4.5gm/100ml 100 ML IV SCH ×2 (08:37→16:12)
[2023-03-15] MEDS: gabapentin 100mg capsule PO SCH ×3 (08:37→21:35)
[2023-03-15] MEDS: folic acid/vitamin B complex w/vitamin C 0.8mg tablet PO SCH (08:37)
[2023-03-15] MEDS: lactose-reduced food (Ensure High Protein) 237ml bottle PO SCH ×3 (08:37→18:01)
[2023-03-15] MEDS: amLODIPine 5mg tablet PO SCH (08:38)
[2023-03-15] MEDS: multivitamins, therapeutics tablet PO SCH (08:38)
[2023-03-15] MEDS: zinc sulfate 220mg capsule PO SCH ×3 (08:38→21:35)
[2023-03-15] MEDS: lisinopril 20mg tablet PO SCH ×2 (08:38→19:14)
[2023-03-15] MEDS: enoxaparin 40mg/0.4ml syringe SUBCUT SCH (08:39)
[2023-03-15] MEDS: nystatin 15 GM powder TP SCH ×2 (08:39→19:09)
[2023-03-15] MEDS: ascorbic acid 500mg tablet PO SCH ×3 (08:39→17:29)
[2023-03-15 08:40] VITALS: RESP 20; O2SAT 96
[2023-03-15] MEDS: HYDROcodone/acetaminophen 10/325mg tab PO PRN ×3 (08:46→21:36)
[2023-03-15 09:26] LABS: CHLAMYDIA TRACHOMATIS, NAA Negative (Negative)
[2023-03-15 10:00] VITALS: BP 153/81; PULSE 83; RESP 20; TEMP 98.1; O2SAT 95
[2023-03-15] MEDS: morphine 2 MG/ML inj. syringe IV PRN ×2 (12:42→19:21)
[2023-03-15] MEDS: insulin Lispro (HumaLOG) vial - multi-dose SQ SCH ×2 (13:38→19:05)
[2023-03-15 18:00] VITALS: BP 165/98; PULSE 85; RESP 20; TEMP 98.2; O2SAT 95
[2023-03-15 20:00] VITALS: RESP 20; O2SAT 96
[2023-03-15] MEDS: insulin glargine (Lantus) pen - multi-dose SQ SCH (21:38)
[2023-03-15 22:00] VITALS: BP 164/93; PULSE 88; RESP 16; TEMP 98.7; O2SAT 96
[2023-03-16] MEDS: vancomycin 1,750 MG in NS 350ml IV soln IV SCH ×3 (01:06→23:07)
[2023-03-16] MEDS: piperacillin/tazo 4.5gm/100ml 100 ML IV SCH ×3 (03:32→19:21)
[2023-03-16 06:00] VITALS: BP 134/76; PULSE 74; RESP 16; TEMP 97.4; O2SAT 97
[2023-03-16 06:26] LABS: BASOPHILS % (AUTO) 0.6 % (0-1); EOSINOPHILS # (AUTO) 0.1 X10'3 (0-0.9); EOSINOPHILS % (AUTO) 2.5 % (0-6); HEMATOCRIT 31.3 % (42.0-52.0); HEMOGLOBIN 10.5 g/dl (14.0-17.9); LYMPHOCYTES # (AUTO) 1.3 X10'3 (1.1-4.8); LYMPHOCYTES % (AUTO) 25.8 % (21-51); MEAN CORPUSCULAR HEMOGLOBIN 29.7 PG (27.0-31.0); MEAN CORPUSCULAR HGB CONC 33.7 g/dL (33.0-36.5); MEAN CORPUSCULAR VOLUME 88.1 FL (78-98); MONOCYTES # (AUTO) 0.6 X10'3 (0-0.9); MONOCYTES % (AUTO) 10.9 % (2-12); NEUTROPHILS # (AUTO) 3.1 X10'3 (1.8-7.7); NEUTROPHILS % (AUTO) 60.2 % (42-75); PLATELET COUNT 577 X10'3 (140-440); RED BLOOD COUNT 3.55 X10'6 (4.70-6.10); RED CELL DISTRIBUTION WIDTH 13.8 % (11.5-14.5); WHITE BLOOD COUNT 5.1 X10'3 (4.5-11.0)
[2023-03-16 06:31] LABS: ALANINE AMINOTRANSFERASE 15 U/L (12-78); ALBUMIN 1.8 G/DL (3.4-5.0); ALBUMIN/GLOBULIN RATIO 0.4 (1.1-1.5); ALKALINE PHOSPHATASE 90 IU/L (46-116); ANION GAP 5 (8-16); ASPARTATE AMINO TRANSFERASE 29 U/L (10-37); BILIRUBIN,TOTAL 0.2 MG/DL (0.1-1.0); BLOOD UREA NITROGEN 24 MG/DL (7-18); BUN/CREATININE RATIO 35.3 (10.0-20.0); CALCIUM 8.3 MG/DL (8.5-10.1); CHLORIDE 99 MMOL/L (99-107); CREATININE 0.68 MG/DL (0.60-1.10); GLUCOSE 87 MG/DL (70-104); POTASSIUM 4.2 MMOL/L (3.5-5.1); SODIUM 133 MMOL/L (135-145); TOTAL CARBON DIOXIDE 29.5 MMOL/L (24-32); eCRCL 138 ML/MIN; eGFR > 90 ML/MIN
[2023-03-16] MEDS: nystatin 15 GM powder TP SCH ×2 (08:00→19:39)
[2023-03-16] MEDS: enoxaparin 40mg/0.4ml syringe SUBCUT SCH (08:32)
[2023-03-16] MEDS: amLODIPine 5mg tablet PO SCH (08:33)
[2023-03-16] MEDS: pantoprazole 40mg Tablet.DR PO SCH (08:33)
[2023-03-16] MEDS: lisinopril 20mg tablet PO SCH ×2 (08:33→19:39)
[2023-03-16] MEDS: ascorbic acid 500mg tablet PO SCH ×3 (08:33→17:04)
[2023-03-16] MEDS: atorvastatin 20mg tablet PO SCH (08:34)
[2023-03-16] MEDS: zinc sulfate 220mg capsule PO SCH ×3 (08:34→21:09)
[2023-03-16] MEDS: folic acid/vitamin B complex w/vitamin C 0.8mg tablet PO SCH (08:34)
[2023-03-16] MEDS: gabapentin 100mg capsule PO SCH ×3 (08:34→21:09)
[2023-03-16] MEDS: multivitamins, therapeutics tablet PO SCH (08:34)
[2023-03-16] MEDS: HYDROcodone/acetaminophen 10/325mg tab PO PRN ×3 (08:35→21:10)
[2023-03-16] MEDS: insulin Lispro (HumaLOG) vial - multi-dose SQ SCH ×3 (08:46→19:34)
[2023-03-16] MEDS: lactose-reduced food (Ensure High Protein) 237ml bottle PO SCH ×3 (08:49→18:00)
[2023-03-16 10:00] VITALS: BP 139/79; PULSE 72; RESP 16; TEMP 97.1; O2SAT 96
[2023-03-16 18:30] VITALS: BP 132/79; PULSE 76; RESP 16; TEMP 98.4; O2SAT 95
[2023-03-16 22:00] VITALS: BP 139/79; PULSE 78; RESP 16; TEMP 98.2; O2SAT 96
[2023-03-16] MEDS: insulin glargine (Lantus) pen - multi-dose SQ SCH (22:28)
[2023-03-17] MEDS: piperacillin/tazo 4.5gm/100ml 100 ML IV SCH (01:00)
[2023-03-17 07:14] VITALS: BP 150/80; PULSE 78; RESP 16; TEMP 98.8; O2SAT 96
[2023-03-17 07:22] LABS: BASOPHILS % (AUTO) 0.7 % (0-1); EOSINOPHILS # (AUTO) 0.2 X10'3 (0-0.9); EOSINOPHILS % (AUTO) 2.3 % (0-6); HEMATOCRIT 32.5 % (42.0-52.0); LYMPHOCYTES # (AUTO) 1.3 X10'3 (1.1-4.8); LYMPHOCYTES % (AUTO) 18.4 % (21-51); MEAN CORPUSCULAR HEMOGLOBIN 29.9 PG (27.0-31.0); MEAN CORPUSCULAR HGB CONC 33.8 g/dL (33.0-36.5); MEAN CORPUSCULAR VOLUME 88.3 FL (78-98); MONOCYTES # (AUTO) 0.8 X10'3 (0-0.9); MONOCYTES % (AUTO) 11.7 % (2-12); NEUTROPHILS # (AUTO) 4.7 X10'3 (1.8-7.7); NEUTROPHILS % (AUTO) 66.9 % (42-75); PLATELET COUNT 576 X10'3 (140-440); RED BLOOD COUNT 3.68 X10'6 (4.70-6.10); RED CELL DISTRIBUTION WIDTH 13.6 % (11.5-14.5)
[2023-03-17 07:41] LABS: ALANINE AMINOTRANSFERASE 27 U/L (12-78); ALBUMIN 1.9 G/DL (3.4-5.0); ALBUMIN/GLOBULIN RATIO 0.4 (1.1-1.5); ALKALINE PHOSPHATASE 112 IU/L (46-116); ANION GAP 6 (8-16); ASPARTATE AMINO TRANSFERASE 58 U/L (10-37); BILIRUBIN,TOTAL 0.2 MG/DL (0.1-1.0); BLOOD UREA NITROGEN 27 MG/DL (7-18); BUN/CREATININE RATIO 30.7 (10.0-20.0); CALCIUM 8.5 MG/DL (8.5-10.1); CHLORIDE 97 MMOL/L (99-107); CREATININE 0.88 MG/DL (0.60-1.10); GLUCOSE 211 MG/DL (70-104); POTASSIUM 4.2 MMOL/L (3.5-5.1); SODIUM 132 MMOL/L (135-145); TOTAL CARBON DIOXIDE 28.9 MMOL/L (24-32); TOTAL PROTEIN 6.2 G/DL (6.4-8.2); eCRCL 110 ML/MIN; eGFR > 90 ML/MIN
[2023-03-17 08:00] VITALS: RESP 18; O2SAT 94
[2023-03-17] MEDS: HYDROcodone/acetaminophen 10/325mg tab PO PRN ×4 (08:35→21:03)
[2023-03-17] MEDS: gabapentin 100mg capsule PO SCH ×3 (08:36→21:02)
[2023-03-17] MEDS: zinc sulfate 220mg capsule PO SCH ×3 (08:36→21:03)
[2023-03-17] MEDS: pantoprazole 40mg Tablet.DR PO SCH (08:36)
[2023-03-17] MEDS: amLODIPine 5mg tablet PO SCH (08:36)
[2023-03-17] MEDS: folic acid/vitamin B complex w/vitamin C 0.8mg tablet PO SCH (08:36)
[2023-03-17] MEDS: atorvastatin 20mg tablet PO SCH (08:36)
[2023-03-17] MEDS: ascorbic acid 500mg tablet PO SCH ×3 (08:36→17:17)
[2023-03-17] MEDS: lisinopril 20mg tablet PO SCH ×2 (08:36→19:20)
[2023-03-17] MEDS: nystatin 15 GM powder TP SCH ×2 (08:37→19:27)
[2023-03-17] MEDS: enoxaparin 40mg/0.4ml syringe SUBCUT SCH (08:37)
[2023-03-17] MEDS: lactose-reduced food (Ensure High Protein) 237ml bottle PO SCH ×3 (08:44→18:03)
[2023-03-17] MEDS: insulin Lispro (HumaLOG) vial - multi-dose SQ SCH ×4 (08:51→21:11)
[2023-03-17] MEDS: amox tr/potassium clavulanate 875/125mg TAB PO SCH ×2 (08:52→17:17)
[2023-03-17] MEDS: DOXYCYCLINE 100MG CAPSULE PO SCH ×2 (08:52→17:17)
[2023-03-17] MEDS: multivitamins, therapeutics tablet PO SCH (08:52)
[2023-03-17 11:41] VITALS: BP 126/80; PULSE 82; RESP 17; TEMP 98.1; O2SAT 96
[2023-03-17 18:30] VITALS: BP 150/92; PULSE 80; RESP 15; TEMP 97.4; O2SAT 96
[2023-03-17 18:50] VITALS: RESP 15; O2SAT 96
[2023-03-17] MEDS: insulin glargine (Lantus) pen - multi-dose SQ SCH (21:12)
[2023-03-17 22:00] VITALS: BP 166/92; PULSE 80; RESP 16; TEMP 98.1; O2SAT 96
[2023-03-18] MEDS: HYDROcodone/acetaminophen 10/325mg tab PO PRN ×4 (05:37→21:18)
[2023-03-18 06:35] VITALS: BP 144/86; PULSE 75; RESP 18; TEMP 98.1; O2SAT 97
[2023-03-18] MEDS: DEXTROSE 15 GM of carb/4 tabs (each vial/BOTTLE has 4 tablets) PO PRN ×2 (06:53→07:19)
[2023-03-18 07:10] LABS: BASOPHILS # (AUTO) 0.1 X10'3 (0-0.2); BASOPHILS % (AUTO) 1.2 % (0-1); EOSINOPHILS # (AUTO) 0.1 X10'3 (0-0.9); EOSINOPHILS % (AUTO) 2.9 % (0-6); HEMATOCRIT 32.8 % (42.0-52.0); LYMPHOCYTES # (AUTO) 1.5 X10'3 (1.1-4.8); LYMPHOCYTES % (AUTO) 31.6 % (21-51); MEAN CORPUSCULAR HEMOGLOBIN 29.6 PG (27.0-31.0); MEAN CORPUSCULAR HGB CONC 33.6 g/dL (33.0-36.5); MEAN CORPUSCULAR VOLUME 88.1 FL (78-98); MEAN PLATELET VOLUME 5.5 FL (7.4-10.4); MONOCYTES # (AUTO) 0.7 X10'3 (0-0.9); MONOCYTES % (AUTO) 15.1 % (2-12); NEUTROPHILS # (AUTO) 2.4 X10'3 (1.8-7.7); NEUTROPHILS % (AUTO) 49.2 % (42-75); PLATELET COUNT 557 X10'3 (140-440); RED BLOOD COUNT 3.72 X10'6 (4.70-6.10); RED CELL DISTRIBUTION WIDTH 13.6 % (11.5-14.5); WHITE BLOOD COUNT 4.9 X10'3 (4.5-11.0)
[2023-03-18] MEDS: gabapentin 100mg capsule PO SCH ×3 (07:20→19:53)
[2023-03-18] MEDS: pantoprazole 40mg Tablet.DR PO SCH (07:20)
[2023-03-18] MEDS: atorvastatin 20mg tablet PO SCH (07:20)
[2023-03-18] MEDS: lisinopril 20mg tablet PO SCH ×2 (07:20→19:52)
[2023-03-18] MEDS: multivitamins, therapeutics tablet PO SCH (07:20)
[2023-03-18] MEDS: zinc sulfate 220mg capsule PO SCH ×3 (07:20→19:53)
[2023-03-18] MEDS: amLODIPine 5mg tablet PO SCH (07:20)
[2023-03-18] MEDS: folic acid/vitamin B complex w/vitamin C 0.8mg tablet PO SCH (07:20)
[2023-03-18] MEDS: enoxaparin 40mg/0.4ml syringe SUBCUT SCH (07:21)
[2023-03-18] MEDS: nystatin 15 GM powder TP SCH ×2 (07:24→19:55)
[2023-03-18 07:30] VITALS: RESP 18; O2SAT 97
[2023-03-18 07:46] LABS: ALANINE AMINOTRANSFERASE 22 U/L (12-78); ALBUMIN/GLOBULIN RATIO 0.5 (1.1-1.5); ALKALINE PHOSPHATASE 100 IU/L (46-116); ANION GAP 9 (8-16); ASPARTATE AMINO TRANSFERASE 35 U/L (10-37); BILIRUBIN,TOTAL 0.2 MG/DL (0.1-1.0); BLOOD UREA NITROGEN 24 MG/DL (7-18); BUN/CREATININE RATIO 31.6 (10.0-20.0); CALCIUM 8.7 MG/DL (8.5-10.1); CHLORIDE 99 MMOL/L (99-107); CREATININE 0.76 MG/DL (0.60-1.10); GLUCOSE 61 MG/DL (70-104); POTASSIUM 4.1 MMOL/L (3.5-5.1); SODIUM 135 MMOL/L (135-145); TOTAL CARBON DIOXIDE 26.6 MMOL/L (24-32); TOTAL PROTEIN 6.4 G/DL (6.4-8.2); eCRCL 127 ML/MIN; eGFR > 90 ML/MIN
[2023-03-18] MEDS: lactose-reduced food (Ensure High Protein) 237ml bottle PO SCH ×3 (08:00→18:53)
[2023-03-18] MEDS: amox tr/potassium clavulanate 875/125mg TAB PO SCH ×2 (09:35→16:58)
[2023-03-18] MEDS: DOXYCYCLINE 100MG CAPSULE PO SCH ×2 (09:36→16:58)
[2023-03-18] MEDS: ascorbic acid 500mg tablet PO SCH ×3 (09:36→16:58)
[2023-03-18 10:00] VITALS: BP 138/79; PULSE 77; RESP 16; TEMP 97.5; O2SAT 97
[2023-03-18] MEDS: insulin Lispro (HumaLOG) vial - multi-dose SQ SCH ×2 (13:33→19:16)
[2023-03-18] MEDS: morphine 2 MG/ML inj. syringe IV PRN (15:00)
[2023-03-18] MEDS ORDERED: simethicone 125mg capsule PO ONE (16:00)
[2023-03-18 18:00] VITALS: BP 165/96; PULSE 72; RESP 18; TEMP 98.3; O2SAT 96
[2023-03-18] MEDS ORDERED: ketorolac tromethamine 15mg/ml inj. IV ONE (18:35)
[2023-03-18 20:00] VITALS: RESP 18; O2SAT 95
[2023-03-18] MEDS: insulin glargine (Lantus) pen - multi-dose SQ SCH (21:12)
[2023-03-18 22:00] VITALS: BP 153/90; PULSE 82; RESP 16; TEMP 98.7; O2SAT 95
[2023-03-19 06:00] VITALS: BP 134/73; PULSE 18; RESP 16; TEMP 97.3; O2SAT 96
[2023-03-19 06:38] LABS: BASOPHILS # (AUTO) 0.1 X10'3 (0-0.2); BASOPHILS % (AUTO) 1.6 % (0-1); EOSINOPHILS # (AUTO) 0.2 X10'3 (0-0.9); EOSINOPHILS % (AUTO) 2.1 % (0-6); HEMATOCRIT 32.5 % (42.0-52.0); HEMOGLOBIN 10.9 g/dl (14.0-17.9); LYMPHOCYTES # (AUTO) 1.7 X10'3 (1.1-4.8); LYMPHOCYTES % (AUTO) 21.7 % (21-51); MEAN CORPUSCULAR HEMOGLOBIN 29.4 PG (27.0-31.0); MEAN CORPUSCULAR HGB CONC 33.5 g/dL (33.0-36.5); MEAN CORPUSCULAR VOLUME 87.9 FL (78-98); MEAN PLATELET VOLUME 5.8 FL (7.4-10.4); MONOCYTES # (AUTO) 0.9 X10'3 (0-0.9); MONOCYTES % (AUTO) 11.9 % (2-12); NEUTROPHILS # (AUTO) 4.8 X10'3 (1.8-7.7); NEUTROPHILS % (AUTO) 62.7 % (42-75); PLATELET COUNT 566 X10'3 (140-440); WHITE BLOOD COUNT 7.7 X10'3 (4.5-11.0)
[2023-03-19 06:43] LABS: ALANINE AMINOTRANSFERASE 20 U/L (12-78); ALBUMIN 2.1 G/DL (3.4-5.0); ALBUMIN/GLOBULIN RATIO 0.4 (1.1-1.5); ALKALINE PHOSPHATASE 99 IU/L (46-116); ANION GAP 4 (8-16); ASPARTATE AMINO TRANSFERASE 24 U/L (10-37); BILIRUBIN,TOTAL 0.2 MG/DL (0.1-1.0); BLOOD UREA NITROGEN 27 MG/DL (7-18); BUN/CREATININE RATIO 35.1 (10.0-20.0); CALCIUM 8.6 MG/DL (8.5-10.1); CHLORIDE 99 MMOL/L (99-107); CREATININE 0.77 MG/DL (0.60-1.10); GLUCOSE 167 MG/DL (70-104); POTASSIUM 4.4 MMOL/L (3.5-5.1); SODIUM 133 MMOL/L (135-145); TOTAL CARBON DIOXIDE 29.6 MMOL/L (24-32); TOTAL PROTEIN 6.8 G/DL (6.4-8.2); eCRCL 119 ML/MIN; eGFR > 90 ML/MIN
[2023-03-19] MEDS: pantoprazole 40mg Tablet.DR PO SCH (07:52)
[2023-03-19] MEDS: multivitamins, therapeutics tablet PO SCH (07:53)
[2023-03-19] MEDS: folic acid/vitamin B complex w/vitamin C 0.8mg tablet PO SCH (07:53)
[2023-03-19] MEDS: atorvastatin 20mg tablet PO SCH (07:53)
[2023-03-19] MEDS: gabapentin 100mg capsule PO SCH ×2 (07:53→14:11)
[2023-03-19] MEDS: nystatin 15 GM powder TP SCH (07:55)
[2023-03-19] MEDS: enoxaparin 40mg/0.4ml syringe SUBCUT SCH (07:55)
[2023-03-19] MEDS: zinc sulfate 220mg capsule PO SCH ×2 (07:55→14:11)
[2023-03-19] MEDS: ascorbic acid 500mg tablet PO SCH ×2 (07:55→12:39)
[2023-03-19] MEDS: lisinopril 20mg tablet PO SCH (07:56)
[2023-03-19] MEDS ORDERED: amLODIPine 5mg tablet PO SCH (08:00)
[2023-03-19] MEDS: HYDROcodone/acetaminophen 10/325mg tab PO PRN ×2 (08:07→14:11)
[2023-03-19] MEDS: lactose-reduced food (Ensure High Protein) 237ml bottle PO SCH ×3 (08:10→13:00)
[2023-03-19 10:00] VITALS: BP 161/91; PULSE 76; RESP 17; TEMP 97.6; O2SAT 96
[2023-03-19] MEDS: insulin Lispro (HumaLOG) vial - multi-dose SQ SCH (14:10)
[2023-03-19] MEDS ORDERED: nystatin 15 GM powder TP SCH (15:10)
[2023-03-19 15:11] VITALS: RESP 16
[2023-03-19] MEDS ORDERED: NYSTATIN 60 GM POWDER-BULK CONTAINER TP SCH (21:00)
== END 2023-03-19 16:30 | DRG 305 ==
LOC: ER 10:24 → ED HOLD 16:40 → ORTHO 4S 03-06 07:40
PROVIDERS: ADMIT Family Medicine; ATTEND Family Medicine
PROC: 0Y6N0Z9 Detachment at Left Foot, Partial 1st Ray, Open Approach (ICD-10-PCS; principal; 2023-03-05)
PROC: 0Y6N0ZB Detachment at Left Foot, Partial 2nd Ray, Open Approach (ICD-10-PCS; 2023-03-05)
PROC: 0Y6N0ZC Detachment at Left Foot, Partial 3rd Ray, Open Approach (ICD-10-PCS; 2023-03-05)
PROC: 0Y6N0ZD Detachment at Left Foot, Partial 4th Ray, Open Approach (ICD-10-PCS; 2023-03-05)
PROC: 0Y6N0ZF Detachment at Left Foot, Partial 5th Ray, Open Approach (ICD-10-PCS; 2023-03-05)
DX: E10.69 Type 1 diabetes mellitus with other specified complication (principal); E10.40 Type 1 diabetes mellitus with diabetic neuropathy, unspecified; E10.52 Type 1 diabetes mellitus with diabetic peripheral angiopathy with gangrene; M86.8X7 Other osteomyelitis, ankle and foot; E10.628 Type 1 diabetes mellitus with other skin complications; F15.10 Other stimulant abuse, uncomplicated; F32.A Depression, unspecified; F10.21 Alcohol dependence, in remission; E10.65 Type 1 diabetes mellitus with hyperglycemia; F17.290 Nicotine dependence, other tobacco product, uncomplicated; I10 Essential (primary) hypertension; L03.116 Cellulitis of left lower limb; N43.3 Hydrocele, unspecified; Z79.4 Long term (current) use of insulin; Z59.02 Unsheltered homelessness
CPT/HCPCS: 36415; 73590; 73630; 73720; 76870; 80053; 80061; 80202; 81003; 82948; 83036; 83605; 83735; 84145; 84484; 85025; 85610; 85651; 85730; 86140; 87040; 87491; 93005; 93926; 93976; 97110; 97116; 97161; 97530; 99285; A4215; A4615; A4618; A6213; A6222; A6223; A6250; A6258; A6446; A6449; A7000; A9575; G0378; J0692; J1100; J1170; J1650; J1815; J1885; J2250; J2270; J2405; J2543; J2704; J3010; J3370; J3490; J7030; J7040; J7120; L4360

== ENCOUNTER 2023-03-24 20:02 | Emergency (ER) | payer MEDICAID ==
[~2023-03-24 20:02] MED LIST: GABA300C PO; LISI20TA28 PO
[2023-03-24 20:24] LABS: BILIRUBIN,URINE NEGATIVE (Neg); CLARITY,URINE CLEAR (Clear); COLOR,URINE YELLOW (Yellow); GLUCOSE, URINE 500 mg/dl (Neg); KETONES,URINE NEGATIVE (Neg); LEUKOCYTE ESTERASE ,URINE NEGATIVE (Neg); NITRITES, URINE NEGATIVE (Neg); OCCULT BLOOD,URINE NEGATIVE (Neg); PROTEIN,URINE TRACE mg/dl (Neg); UROBILINOGEN,URINE 0.2 E.U/dL (0.2-1.0)
[2023-03-24 20:26] LABS: UA COLLECTION TYPE CLN CATCH MIDSTREAM
[2023-03-24 20:30] LABS: BACTERIA,URINE NONE SEEN /HPF (Neg); RBC,URINE 0-2 /HPF (0-2); SQUAMOUS EPITHELIAL CELL,UR FEW /LPF (FEW); WBC,URINE 0-4 /HPF (0-4)
[2023-03-24 20:43] LABS: BASOPHILS # (AUTO) 0.1 X10'3 (0-0.2); BASOPHILS % (AUTO) 0.6 % (0-1); EOSINOPHILS # (AUTO) 0.2 X10'3 (0-0.9); EOSINOPHILS % (AUTO) 1.7 % (0-6); HEMATOCRIT 33.4 % (42.0-52.0); HEMOGLOBIN 11.2 g/dl (14.0-17.9); LYMPHOCYTES % (AUTO) 9.8 % (21-51); MEAN CORPUSCULAR HEMOGLOBIN 29.1 PG (27.0-31.0); MEAN CORPUSCULAR HGB CONC 33.4 g/dL (33.0-36.5); MEAN CORPUSCULAR VOLUME 87.3 FL (78-98); MEAN PLATELET VOLUME 5.7 FL (7.4-10.4); MONOCYTES # (AUTO) 0.9 X10'3 (0-0.9); MONOCYTES % (AUTO) 8.2 % (2-12); NEUTROPHILS # (AUTO) 8.4 X10'3 (1.8-7.7); NEUTROPHILS % (AUTO) 79.7 % (42-75); PLATELET COUNT 487 X10'3 (140-440); RED BLOOD COUNT 3.83 X10'6 (4.70-6.10); RED CELL DISTRIBUTION WIDTH 14.4 % (11.5-14.5); WHITE BLOOD COUNT 10.5 X10'3 (4.5-11.0)
[2023-03-24] MEDS ORDERED: normal saline 1000ML IV soln IVB ONE (21:00)
[2023-03-24] MEDS ORDERED: glycopyrrolate 0.2mg/ml inj IV ONE (21:00)
[2023-03-24] MEDS ORDERED: ondansetron/PF 4mg/2ml inj IV ONE (21:00)
[2023-03-24 21:01] LABS: ALANINE AMINOTRANSFERASE 23 U/L (12-78); ALBUMIN 2.6 G/DL (3.4-5.0); ALBUMIN/GLOBULIN RATIO 0.6 (1.1-1.5); ALKALINE PHOSPHATASE 94 IU/L (46-116); ANION GAP 5 (8-16); ASPARTATE AMINO TRANSFERASE 21 U/L (10-37); BILIRUBIN,TOTAL 0.2 MG/DL (0.1-1.0); BLOOD UREA NITROGEN 29 MG/DL (7-18); BUN/CREATININE RATIO 33.3 (10.0-20.0); CALCIUM 8.8 MG/DL (8.5-10.1); CHLORIDE 98 MMOL/L (99-107); CREATININE 0.87 MG/DL (0.60-1.10); GLUCOSE 294 MG/DL (70-104); LIPASE 12 U/L (16-77); POTASSIUM 4.2 MMOL/L (3.5-5.1); SODIUM 131 MMOL/L (135-145); TOTAL CARBON DIOXIDE 28.2 MMOL/L (24-32); TOTAL PROTEIN 6.7 G/DL (6.4-8.2); eGFR > 90 ML/MIN
[2023-03-24 21:12] VITALS: BP 145/87; PULSE 90; RESP 20; TEMP 98.2; O2SAT 97
[2023-03-24] MEDS ORDERED: amox tr/potassium clavulanate 875/125mg TAB PO ONE (22:10)
[2023-03-24] MEDS ORDERED: AMOX-580 PO (22:11)
== END 2023-03-25 00:02 | disposition home or self-care (01) ==
LOC: ER 20:03
DX: R10.84 Generalized abdominal pain (principal); I10 Essential (primary) hypertension; K21.9 Gastro-esophageal reflux disease without esophagitis; E11.9 Type 2 diabetes mellitus without complications
CPT/HCPCS: 36415; 74176; 80053; 81001; 83690; 84145; 85025; 96374; 96375; 99285; J2405; J3490; J7030